=== PATIENT | female | born 1945 | race American Indian/Alaskan Native ===

== ENCOUNTER 2017-06-27 17:27 | Emergency (ER) | payer SELFPAY ==
[2017-06-27 18:47] LABS: Basophils % (Auto) 0.9 % (0.0-1.8); Eosinophils % (Auto) 5.1 % (0.0-4.3); Hematocrit 39.1 % (30.3-42.9); Hemoglobin 12.9 gm/dl (10.1-14.3); Mean Corpuscular HGB Conc 33 % (30-34); Mean Corpuscular Hemoglobin 32 pg (28-32); Mean Corpuscular Volume 95 fl (79-97); Platelet Count 192 K/mm3 (140-440); Red Blood Count 4.11 M/mm3 (3.65-5.03); Red Cell Distribution Width 14.4 % (13.2-15.2); White Blood Count 4.9 K/mm3 (4.5-11.0)
[2017-06-27 19:00] LABS: Calcium 9.2 mg/dL (8.4-10.2); Chloride 99.8 mmol/L (98-107); Potassium 4.8 mmol/L (3.6-5.0)
== END 2017-06-27 19:32 | disposition left against medical advice (07) ==
LOC: ED 17:27
DX: N63 Unspecified lump in breast (principal); Z53.21 Procedure and treatment not carried out due to patient leaving prior to being seen by health care provider
CPT/HCPCS: 36415; 80048; 85025

== ENCOUNTER 2017-06-28 10:46 | Emergency (ER) | payer MEDICARE ==
[2017-06-28 10:55] VITALS: BP 216/114
--- NOTE | 2017-06-28 14:59 | Emergency Department Report ---
- General Chief complaint: Skin/Abscess/Foreign Body Stated complaint: LUMP UNDER RIGHT BREAST Time Seen by Provider: 06/28/17 13:28 Source: patient Mode of arrival: Ambulatory Limitations: No Limitations - History of Present Illness Initial comments: This is a 72-year-old female nontoxic, well nourished in appearance, no acute signs of distress presents to the ED complaining of abscess to right breast region. Patient stated she developed this for days ago. Denies any pus or drainage. Patient denies any fever, chills, nausea, vomiting, chest pain or shortness of breath. Patient states allergies to penicillin, Bactrim. Past medical history includes hypertension. MD complaint: abscess/boil -: Gradual, days(s) (4) Tetanus Up to Date: yes Severity: mild Severity scale (0 -10): 3 Quality: aching Consistency: constant Improves with: none Worsens with: none Context: none Associated symptoms: denies other symptoms Treatments Prior to Arrival: none - Related Data Previous Rx's Medication Instructions Recorded Last Taken Type Clindamycin [Clindamycin CAP] 450 mg PO Q8HR 7 Days 06/28/17 Unknown Rx Allergies Allergy/AdvReac Type Severity Reaction Status Date / Time Penicillins Allergy Unknown Verified 06/27/17 17:38 sulfamethoxazole AdvReac Hives Verified 06/28/17 10:57 [From Bactrim] trimethoprim [From Bactrim] AdvReac Hives Verified 06/28/17 10:57 Abscess Boil HPI - HPI Chief Complaint: Skin/Abscess/Foreign Body Stated Complaint: LUMP UNDER RIGHT BREAST Time Seen by Provider: 06/28/17 13:28 Home Medications: Previous Rx's Medication Instructions Recorded Last Taken Type Clindamycin [Clindamycin CAP] 450 mg PO Q8HR 7 Days 06/28/17 Unknown Rx Allergies/Adverse Reactions: Allergies Allergy/AdvReac Type Severity Reaction Status Date / Time Penicillins Allergy Unknown Verified 06/27/17 17:38 sulfamethoxazole AdvReac Hives Verified 06/28/17 10:57 [From Bactrim] trimethoprim [From Bactrim] AdvReac Hives Verified 06/28/17 10:57 ED Review of Systems ROS: Stated complaint: LUMP UNDER RIGHT BREAST Other details as noted in HPI Constitutional: denies: chills, fever Eyes: denies: eye pain, eye discharge, vision change ENT: denies: ear pain, throat pain Respiratory: denies: cough, shortness of breath, wheezing Cardiovascular: denies: chest pain, palpitations Endocrine: no symptoms reported Gastrointestinal: denies: abdominal pain, nausea, diarrhea Genitourinary: denies: urgency, dysuria, discharge Musculoskeletal: denies: back pain, joint swelling, arthralgia Skin: denies: rash, lesions Neurological: denies: headache, weakness, paresthesias Psychiatric: denies: anxiety, depression Hematological/Lymphatic: denies: easy bleeding, easy bruising ED Past Medical Hx - Past Medical History Previous Medical History?: Yes Hx Hypertension: Yes Additional medical history: hypothyroid - Surgical History Past Surgical History?: Yes Additional Surgical History: partial hysterectomy - Social History Smoking Status: Never Smoker Substance Use Type: None - Medications Home Medications: Home Medications Medication Instructions Recorded Confirmed Last Taken Type Clindamycin [Clindamycin CAP] 450 mg PO Q8HR 7 Days 06/28/17 Unknown Rx ED Physical Exam - General Limitations: No Limitations General appearance: alert, in no apparent distress - Head Head exam: Present: atraumatic, normocephalic, normal inspection - Eye Eye exam: Present: normal appearance, PERRL, EOMI. Absent: scleral icterus, conjunctival injection, nystagmus, periorbital swelling, periorbital tenderness Pupils: Present: normal accommodation - ENT ENT exam: Present: normal exam, normal orophraynx, mucous membranes moist, TM's normal bilaterally, normal external ear exam - Neck Neck exam: Present: normal inspection, full ROM. Absent: tenderness, meningismus, lymphadenopathy, thyromegaly - Respiratory Respiratory exam: Present: normal lung sounds bilaterally. Absent: respiratory distress, wheezes, rales, rhonchi, stridor - Cardiovascular Cardiovascular Exam: Present: regular rate, normal rhythm. Absent: systolic murmur, diastolic murmur, rubs, gallop - GI/Abdominal GI/Abdominal exam: Present: soft, normal bowel sounds. Absent: distended, guarding, rebound, rigid, diminished bowel sounds - Rectal Rectal exam: Present: deferred - Extremities Exam Extremities exam: Present: normal inspection, full ROM, normal capillary refill. Absent: tenderness, pedal edema, joint swelling, calf tenderness - Back Exam Back exam: Present: normal inspection, full ROM. Absent: tenderness, CVA tenderness (R), CVA tenderness (L), muscle spasm, paraspinal tenderness, vertebral tenderness, rash noted - Neurological Exam Neurological exam: Present: alert, oriented X3, CN II-XII intact, normal gait, reflexes normal - Psychiatric Psychiatric exam: Present: normal affect, normal mood - Skin Skin exam: Present: warm, dry, intact, normal color, other (1 cm x 1 circular erythema that is warm to touch and consistent with cellulitis. There is slight swelling but there is no induration or fluctuance was noted. No pus or drainage noted. Nontender to touch. ). Absent: rash ED Course Vital Signs 06/28/17 10:50 Temperature 98.4 F Pulse Rate 79 Respiratory 16 Rate Blood Pressure 216/114 O2 Sat by Pulse 98 Oximetry - Reevaluation(s) Reevaluation #1: 06/28/17 15:25 Patient is speaking in full sentences with no signs of distress. ED Medical Decision Making - Medical Decision Making This is a 72-year-old male that presents with cellulitis in her right under breast region with a consistency of cellulitis. Patient received clindamycin due to allergies to Bactrim and penicillin at the time of discharge. Patient was instructed to return in 3 days for reassessment of the cellulitis and if swelling occurs on abscess to return to emergency room. At time time of discharge, the patient does not seem toxic or ill in appearance. No acute signs of distress noted. Patient agrees to discharge treatment plan of care. No further questions noted by the patient. Critical care attestation.: If time is entered above; I have spent that time in minutes in the direct care of this critically ill patient, excluding procedure time. ED Disposition Clinical Impression: Cellulitis Qualifiers: Site of cellulitis: unspecified site Qualified Code(s): L03.90 - Cellulitis, unspecified Disposition: TO HOME OR SELFCARE Is pt being admited?: No Does the pt Need Aspirin: No Condition: Stable Instructions: Cellulitis (ED), Clindamycin (By mouth) Additional Instructions: Return in 3 days for reassessment of the cellulitis or if symptoms of swelling, pus, drainage, or worsening symptoms such as an abscess formation return to emergency room as soon as possible. Prescriptions: Clindamycin [Clindamycin CAP] 450 mg PO Q8HR 7 Days Referrals: PRIMARY CARE, [Primary Care Provider] - 3-5 Days LISA GALAVIZ MD [Staff Physician] - 3-5 Days [facility] [Outside] - 3-5 Days [facility] [Outside] - 3-5 Days Forms: Work/School Release Form(ED)
== END 2017-06-28 15:46 | disposition home or self-care (01) ==
LOC: ED 10:46
DX: N61.0 Mastitis without abscess (principal); I10 Essential (primary) hypertension; E03.9 Hypothyroidism, unspecified; Z90.711 Acquired absence of uterus with remaining cervical stump; Z88.0 Allergy status to penicillin; Z88.8 Allergy status to other drugs, medicaments and biological substances
CPT/HCPCS: 99282

== ENCOUNTER 2017-07-14 15:27 | Emergency (ER) | payer MEDICARE ==
[2017-07-14] MEDS ORDERED: CATAPRES PO ONE (22:28)
--- NOTE | 2017-07-14 22:33 | Emergency Department Report ---
ED General Adult HPI - General Chief complaint: Wound/Laceration Stated complaint: FOLLOW UP Time Seen by Provider: 07/14/17 22:22 Source: patient Mode of arrival: Ambulatory Limitations: No Limitations - History of Present Illness Initial comments: Patient is 72 years old female history of high blood pressure and hypothyroidism she came today with two complaints: the first one is that she wanted to recheck her right breast wound that is being going on for 2 weeks she had antibiotics she just finished her course of clindamycin. Second she is out of her blood pressure medication and her hypothyroidism medication. Patient denied any headache nausea or vomiting no weakness numbness or tingling sensation no bowel or bladder incontinence. She denied any chest pain or shortness of breath. -: Gradual - Related Data Previous Rx's Medication Instructions Recorded Last Taken Type Clindamycin [Clindamycin CAP] 450 mg PO Q8HR 7 Days 06/28/17 Unknown Rx Allergies Allergy/AdvReac Type Severity Reaction Status Date / Time Penicillins Allergy Unknown Verified 06/27/17 17:38 sulfamethoxazole AdvReac Hives Verified 06/28/17 10:57 [From Bactrim] trimethoprim [From Bactrim] AdvReac Hives Verified 06/28/17 10:57 ED Review of Systems ROS: Stated complaint: FOLLOW UP Other details as noted in HPI Comment: All other systems reviewed and negative Constitutional: denies: chills, fever Respiratory: denies: cough, orthopnea, shortness of breath Cardiovascular: denies: chest pain, palpitations, dyspnea on exertion Gastrointestinal: denies: abdominal pain, nausea, vomiting, diarrhea, constipation, hematemesis, melena, hematochezia Genitourinary: denies: urgency, dysuria, frequency, hematuria Musculoskeletal: denies: back pain Skin: other (RT BREAST WOUND 2 CM , NON-TENDER, NON FLUCTUANT, NO ERYTHEMA OR DISCHARGE.) Neurological: denies: headache, weakness, numbness, paresthesias ED Past Medical Hx - Past Medical History Hx Hypertension: Yes Additional medical history: hypothyroid - Surgical History Additional Surgical History: partial hysterectomy - Social History Smoking Status: Never Smoker Substance Use Type: None - Medications Home Medications: Home Medications Medication Instructions Recorded Confirmed Last Taken Type Clindamycin [Clindamycin CAP] 450 mg PO Q8HR 7 Days 06/28/17 Unknown Rx ED Physical Exam - General Limitations: No Limitations General appearance: alert, in no apparent distress - Head Head exam: Present: normocephalic - Eye Eye exam: Present: normal appearance - ENT ENT exam: Present: normal exam, normal orophraynx, mucous membranes moist - Neck Neck exam: Present: normal inspection, full ROM. Absent: tenderness, meningismus - Respiratory Respiratory exam: Present: normal lung sounds bilaterally. Absent: respiratory distress, wheezes, rales, rhonchi, stridor, chest wall tenderness, accessory muscle use, decreased breath sounds, prolonged expiratory - Cardiovascular Cardiovascular Exam: Present: regular rate, normal rhythm, normal heart sounds - GI/Abdominal GI/Abdominal exam: Present: soft, normal bowel sounds. Absent: distended, tenderness, guarding, rebound, rigid, organomegaly, mass, bruit, pulsatile mass , hernia - Extremities Exam Extremities exam: Present: normal inspection, normal capillary refill. Absent: tenderness, pedal edema - Back Exam Back exam: Present: normal inspection. Absent: CVA tenderness (R), CVA tenderness (L) - Neurological Exam Neurological exam: Present: alert, oriented X3, CN II-XII intact, normal gait - Skin Skin exam: Present: warm, intact, normal color ED Course Vital Signs 07/14/17 07/14/17 07/14/17 15:51 21:43 22:25 Temperature 98.2 F 98.0 F Pulse Rate 77 67 53 L Respiratory 18 18 14 Rate Blood Pressure 212/99 202/115 O2 Sat by Pulse 97 98 95 Oximetry 07/14/17 07/14/17 22:26 22:27 Temperature Pulse Rate 66 70 Respiratory 12 18 Rate Blood Pressure 237/104 237/104 O2 Sat by Pulse 97 97 Oximetry - Reevaluation(s) Reevaluation #1: 07/15/17 00:16 Patient stated that she is feeling better, denied headache numbness tingling sensation or weakness. No chest pain or shortness of breath. ED Medical Decision Making - Lab Data Result diagrams: 07/14/17 22:35 07/14/17 22:35 Critical care attestation.: If time is entered above; I have spent that time in minutes in the direct care of this critically ill patient, excluding procedure time. ED Disposition Clinical Impression: Hypertension, malignant Disposition: DC-01 TO HOME OR SELFCARE Is pt being admited?: No Condition: Stable Instructions: Hypertension (ED) Referrals: PRIMARY CARE, [Primary Care Provider] - 3-5 Days
[2017-07-14 22:48] LABS: Basophils % (Auto) 1.8 % (0.0-1.8); Eosinophils % (Auto) 6.4 % (0.0-4.3); Hematocrit 38.1 % (30.3-42.9); Hemoglobin 12.6 gm/dl (10.1-14.3); Mean Corpuscular HGB Conc 33 % (30-34); Mean Corpuscular Hemoglobin 31 pg (28-32); Mean Corpuscular Volume 95 fl (79-97); Platelet Count 201 K/mm3 (140-440); Red Blood Count 4.03 M/mm3 (3.65-5.03); Red Cell Distribution Width 14.2 % (13.2-15.2); White Blood Count 4.3 K/mm3 (4.5-11.0)
[2017-07-14 23:12] LABS: Alanine Aminotransferase 18 units/L (7-56); Albumin 4.3 g/dL (3.9-5); Albumin/Globulin Ratio 1.1 %; Alkaline Phosphatase 48 units/L (35-129); Anion Gap 17 mmol/L; BUN/Creatinine Ratio 11; Blood Urea Nitrogen 11 mg/dL (7-17); Carbon Dioxide 28 mmol/L (22-30); Chloride 98.4 mmol/L (98-107); Glucose 102 mg/dL (65-100); Sodium 139 mmol/L (137-145); Total Protein 8.1 g/dL (6.3-8.2)
[2017-07-15 00:24] VITALS: BP 179/99
== END 2017-07-15 00:40 | disposition home or self-care (01) ==
LOC: ED 15:27
DX: I10 Essential (primary) hypertension (principal)
CPT/HCPCS: 36415; 80053; 85025